=== PATIENT | female | born 1930 | race Caucasian/White ===

== ENCOUNTER 2017-03-19 18:18 | Emergency (ER) | payer MEDICARE, BC, OTHER ==
--- NOTE | ~2017-03-19 | CT71 ---
[facility]. [facility] A Service of [facility] RADIOLOGY TEXT RESULTS PATIENT: MAYNOR WARREN LOCATION: SED : 30 UNIT #: [id number] AGE: [address]: Meet Alfaro SEX: F ORDER DR: [id number] [address] [address] [id number] E MR#: [id number] #: [id number] NAME: MAYNOR WARREN : 1930 SEX: F STUDY DATE/TIME: 03/19/2017 18:44 UNIT: SED ROOM: STUDY DESCRIPTION: CT Head Wo Contrast Attending Physician: Meet Alfaro P.A.-C. Ordering Physician: Meet Alfaro P.A.-C. Primary Care Physician: Daniel Hernández M.D. MEDICAL IMAGING REPORT This report is preliminary unless electronic signature is present. EXAMINATION Noncontrast CT head. DATE 03/19/2017 HISTORY Tripped and fell today, right-sided head pain. Dementia. COMPARISON Noncontrast CT head, 01/04/2017. TECHNIQUE This CT exam was performed with one or more of the following radiation dose reduction techniques: automatic exposure control, adjustment of mA and/or kV according to patient size, and iterative reconstruction. FINDINGS No acute intracranial hemorrhage, mass lesion, mass effect or midline shift is seen. There is no CT evidence of acute infarct, with preservation of payne matter-white matter junction. Fairly advanced chronic microvascular disease changes are present, however, with chronic-appearing lacunar infarcts in the bilateral basal ganglia. There is moderate parenchymal atrophy with compensatory prominence of ventricles and extraaxial spaces. Paranasal sinuses appear clear. Minimal opacification of the left mastoid air cells inferiorly, unchanged from prior. No displaced calvarial fractures identified. IMPRESSION 1. No acute intracranial findings. 2. Moderate chronic microvascular disease changes with chronic appearing bilateral basal ganglia lacunar infarcts. Moderate generalized atrophy. [facility] A Service [facility] RADIOLOGY TEXT RESULTS PATIENT: MAYNOR WARREN LOCATION: SED : 30 UNIT #: [id number] AGE: [address]: Meet Alfaro SEX: F ORDER DR: Dictated by... Jennifer Eckert M.D. THIS IS AN ELECTRONICALLY VERIFIED REPORT Jennifer Eckert M.D. at 03/20/2017 10:02 AM JOANNA/nadia TD: 03/19/2017 21:59 JOB #: [id number] MEDICAL IMAGING REPORT Page 1 of 1
--- NOTE | ~2017-03-19 | CT52 ---
[facility] A Service of [facility] RADIOLOGY TEXT RESULTS PATIENT: MAYNOR WARREN LOCATION: SED : 30 UNIT #: [id number] AGE: [address]: Meet Alfaro SEX: F ORDER DR: [id number] [address] [address] [id number] E MR#: [id number] Acc #: [id number] NAME: MAYNOR WARREN : 1930 SEX: F STUDY DATE/TIME: 03/19/2017 18:26 UNIT: SED ROOM: STUDY DESCRIPTION: CT Cervical Spine Wo Cont Attending Physician: Meet Alfaro P.A.-C. Ordering Physician: Meet Alfaro P.A.-C. Primary Care Physician: Daniel Hernández M.D. MEDICAL IMAGING REPORT This report is preliminary unless electronic signature is present. EXAM CT cervical spine without contrast DATE 03/19/2017 HISTORY Tripped and fell today with head, lower neck and middle back pain radiating between the shoulders. COMPARISON None. TECHNIQUE This CT exam was performed with one or more of the following radiation dose reduction techniques: Automatic exposure control, adjustment of mA and/or kV according to patient size, and iterative reconstruction. FINDINGS Craniocervical junction is intact. Several of the images are degraded by patient motion, limiting sensitivity for evaluation of subtle nondisplaced fracture. However, no acute fracture is seen. There is moderate diminished disc height with anterior and posterior osteophyte formation at C5-6 and C6-7. At C2-3, there is mild bilateral facet arthropathy and minimal bilateral uncovertebral spurring, but no high-grade canal or foraminal stenosis is seen. At C3-4, there is mild bilateral uncovertebral spurring and moderate left, gcwf-sx-xixfxsjg right facet arthropathy, probable mild bilateral neural foraminal narrowing but no significant canal stenosis. [facility] A Service of [facility] RADIOLOGY TEXT RESULTS PATIENT: MAYNOR WARREN LOCATION: SED : 30 UNIT #: [id number] AGE: [address]: Meet Alfaro SEX: F ORDER DR: At C4-5, there is mild broad-based posterior disc-osteophyte formation, advanced left, mild right facet arthropathy. Left side uncovertebral spurring. There is probable moderate left neural foraminal narrowing, and borderline canal stenosis. Right neural foramen appears patent. At C5-6, broad-based posterior disc-osteophyte formation is present slightly eccentric toward the left. There is moderate bilateral facet arthropathy and there is bilateral uncovertebral spurring. Suspected moderate to severe tgemf-qzjmbue-inis-left neural foraminal narrowing and kvkv-tx-bqaewtvy canal stenosis. At C6-7, broad-based posterior disc-osteophyte formation is present with uncovertebral spurring. Probable dwel-pj-xgcgnpkt left greater than right neural foraminal narrowing and mild canal stenosis. At C7-T1, mild posterior disc-osteophyte formation without high-grade canal or foraminal stenosis. Lung apices appear clear. Mild bilateral carotid bulb calcifications are present. There appears to be a compression fracture of the L3 vertebral body predominantly involving the superior endplate, with about 27% loss of vertebral body height, but no definite bony retropulsion or subluxation. It is age indeterminate. There is advanced loss of disc space height at T3-4. Additionally, there is questionable concavity of the superior endplate of T2 with about 20% loss of vertebral body height, age indeterminate. IMPRESSION 1. No acute cervical spine fracture or subluxation is seen. 2. There do appear to be age indeterminate compression deformities of the T3 vertebral body and, more questionably, the superior endplate of T2. Dedicated CT of the thoracic spine may prove helpful for further evaluation. Of note, this study is significantly degraded by patient motion. 3. Multiple level degenerative changes in the cervical spine without acute cervical spine finding. Dictated by... Jennifer Eckert M.D. THIS IS AN ELECTRONICALLY VERIFIED REPORT Jennifer Eckert M.D. at 03/20/2017 10:02 AM [facility]. [facility] A Service of [facility] RADIOLOGY TEXT RESULTS PATIENT: MAYNOR WARREN LOCATION: [facility] : 30 UNIT #: [id number] AGE: [address]: Meet Alfaro PAC SEX: F ORDER DR: TD: 03/19/2017 21:47 JOB #: [id number] MEDICAL IMAGING REPORT Page 1 of 1
--- NOTE | ~2017-03-19 | CT98 ---
[facility] A Service of [facility] RADIOLOGY TEXT RESULTS PATIENT: MAYNOR WARREN LOCATION: SED : 30 UNIT #: [id number] AGE: [address]: Meet Alfaro SEX: F ORDER DR: [id number] [address] [address] [id number] E MR#: [id number] Acc #: [id number] NAME: MAYNOR WARREN : 1930 SEX: F STUDY DATE/TIME: 03/19/2017 18:55 UNIT: SED ROOM: STUDY DESCRIPTION: CT Lumbar Spine Wo Cont Attending Physician: Meet Alfaro P.A.-C. Ordering Physician: Meet Alfaro P.A.-C. Primary Care Physician: Daniel Hernández M.D. MEDICAL IMAGING REPORT This report is preliminary unless electronic signature is present. EXAM CT lumbar spine without contrast 03/19/2017 HISTORY 87-year-old female who tripped and fell today with mid-back pain. COMPARISON None. TECHNIQUE 2 mm axial images through the lumbar spine without contrast. Sagittal and coronal reformatted images were obtained. This CT exam was performed with one or more of the following radiation dose reduction techniques: automatic exposure control, adjustment of mA and/or kV according to patient size, and iterative reconstruction. FINDINGS No acute lumbar spine fracture is seen. There is 4 mm anterolisthesis L4 upon L5 thought to be secondary to degenerative facet arthropathy at that level. There is mild diminished disc height at L4-L5 with endplate sclerosis and vacuum disc phenomenon and posterior osteophyte formation. 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 At L2-L3, there is concentric disc osteophyte formation with mild bilateral facet arthropathy and ligament flavum hypertrophy, moderate canal stenosis, moderate paii-jjphhqz-omoj-right inferior neural foraminal narrowing. At L3-L4, there is concentric disc osteophyte formation, moderate bilateral facet arthropathy and ligamentum flavum hypertrophy. Severe STS. [facility] A Service of [facility] RADIOLOGY TEXT RESULTS PATIENT: MAYNOR WARREN [place] [facility] [place] 30 UNIT #: [id number] AGE: [address]: Meet Alfaro SEX: F ORDER DR: canal stenosis is present with moderate bilateral neural foraminal narrowing. At L4-L5, there is concentric disc osteophyte formation with severe bilateral facet arthropathy and ligament flavum hypertrophy. There is severe canal stenosis and severe left, qliqooci-at-aynage right neural foraminal narrowing. At L5-S1, there is broad-based disc bulge with severe ngyld-uufkgtu-bfxh-left facet arthropathy. There is resulting moderate canal stenosis and moderate bilateral neural foraminal narrowing. IMPRESSION 1. No acute lumbar spine findings. 2. Grade 1 anterolisthesis of L4 on L5 thought to be secondary to facet arthropathy. 3. Multilevel degenerative changes of the lumbar spine as detailed in the report. There is severe canal stenosis at L3-L4 and L4-L5 due to combination of degenerative changes. Dictated by... Jennifer Eckert M.D. THIS IS AN ELECTRONICALLY VERIFIED REPORT Jennifer Eckert M.D. at 03/20/2017 10:02 AM JOANNA/adry TD: 03/19/2017 21:58 JOB #: [id number] MEDICAL IMAGING REPORT Page 1 of 1
[2017-03-19] MEDS ORDERED: DESYREL50 MG PO (18:41)
[2017-03-19] MEDS ORDERED: XANAX0.5 M1 PO (18:41)
[2017-03-19] MEDS ORDERED: COREG6.25 MG PO (18:41)
[2017-03-19] MEDS ORDERED: SEROQUEL100 MG PO (18:42)
[2017-03-19] MEDS ORDERED: SEROQUEL50 M1 PO (18:42)
[2017-03-19] MEDS ORDERED: LEXAPRO20 MG PO (18:43)
[2017-03-19] MEDS ORDERED: ARICEPT PO (18:43)
== END 2017-03-19 19:55 | disposition home or self-care (01) ==
LOC: SED 18:18
DX: S09.90XA Unspecified injury of head, initial encounter (principal); Z79.899 Other long term (current) drug therapy; Z88.8 Allergy status to other drugs, medicaments and biological substances; W01.0XXA Fall on same level from slipping, tripping and stumbling without subsequent striking against object, initial encounter; Y92.129 Unspecified place in nursing home as the place of occurrence of the external cause
CPT/HCPCS: 70450; 72125; 72131; 99284